=== PATIENT | female | born 2000 | race African-American/Black ===

== ENCOUNTER 2018-04-15 20:54 | Emergency (ER) | payer OTHER ==
[2018-04-15] MEDS: KETOROLAC 60 MG/2 ML VIAL (J1885) IM (22:30)
[2018-04-15] MEDS: ACETAMINOPHEN 325 MG TAB PO (22:30)
[2018-04-15] MEDS: traMADol 50 MG TAB PO (23:32)
== END 2018-04-15 23:38 | disposition home or self-care (01) ==
LOC: M ED 20:54
DX: N94.6 Dysmenorrhea, unspecified (principal); R51 Headache
CPT/HCPCS: J1885

== ENCOUNTER 2018-05-21 16:26 | Emergency (ER) | payer OTHER ==
[2018-05-21] MEDS: ONDANSETRON 4 MG ORAL DISINTEGRATING TAB (Q0162 PER 1MG) PO (18:38)
== END 2018-05-21 19:50 | disposition home or self-care (01) ==
LOC: M ED 16:26
DX: A08.4 Viral intestinal infection, unspecified (principal); Z79.3 Long term (current) use of hormonal contraceptives; Z88.6 Allergy status to analgesic agent; Z88.5 Allergy status to narcotic agent
CPT/HCPCS: Q0162

== ENCOUNTER 2018-07-07 07:36 | Emergency (ER) | payer OTHER | END 2018-07-07 08:25 | disposition home or self-care (01) | LOC: M ED 07:36 | DX: M79.671 Pain in right foot (principal); M79.672 Pain in left foot; M79.674 Pain in right toe(s); M79.675 Pain in left toe(s); X31.XXXA Exposure to excessive natural cold, initial encounter; Y92.89 Other specified places as the place of occurrence of the external cause; Y99.1 Military activity | CPT/HCPCS: 99282 ==

== ENCOUNTER 2019-07-28 12:49 | Emergency (ER) | payer OTHER ==
[~2019-07-28] VITALS: Ht 160 cm; Wt 59.1 kg
[~2019-07-28 12:49] MED LIST: ALEV220C2 PO; IBUP80TA PO; PRED20TA PO; ULTR50TA8 PO; ZOFR4TAB14 PO; [UNRECOGNIZED DRUG - CODE]
[2019-07-28] MEDS ORDERED: predniSONE 20 MG TAB PO ONE (13:45)
[2019-07-28] MEDS ORDERED: IBUPROFEN 600 MG TAB PO ONE (13:45)
[2019-07-28 14:07] LABS: BASO % 0.3 % (0.0-1.0); EOS # 0.2 10^3/uL (0.0-0.5); EOS % 2.5 % (0.0-3.0); HEMATOCRIT 46.9 % (36.0-47.0); HEMOGLOBIN 15.5 g/dl (12.0-15.5); LYMPH # 2.3 10^3/uL (1.5-5.0); LYMPH % 29.3 % (24.0-44.0); MEAN CORPUSCULAR HEMOGLOBIN 29.2 pg (27.0-33.0); MEAN CORPUSCULAR VOLUME 88.3 fl (80.0-96.0); MONO # 0.4 10^3/uL (0.0-0.8); MONO % 5.3 % (0.0-5.0); NEUTROPHILS # 4.9 10^3/uL (1.5-8.5); NEUTROPHILS % 62.3 % (36.0-66.0); PLATELET COUNT, AUTOMATED 269 10^3/uL (150-450); RED BLOOD COUNT 5.31 10^6/uL (4.00-5.40); WHITE BLOOD COUNT 7.9 10^3/uL (4.0-10.0)
[2019-07-28] MEDS ORDERED: CLOB0.0526 TOP (14:45)
[2019-07-28] MEDS ORDERED: PRED20TA PO (14:45)
[2019-07-28 14:56] VITALS: BP 123/68
== END 2019-07-28 14:57 | disposition home or self-care (01) ==
LOC: M ED 12:49
DX: L30.1 Dyshidrosis [pompholyx] (principal); Z79.899 Other long term (current) drug therapy

== ENCOUNTER 2020-08-17 19:08 | Emergency (ER) | payer OTHER ==
[~2020-08-17] VITALS: Ht 167.6 cm; Wt 67.9 kg
[~2020-08-17 19:08] MED LIST changes: +CLOB0.0526 TOP
[2020-08-17] MEDS ORDERED: DIFL150T PO (22:22)
[2020-08-17] MEDS ORDERED: FLUCONAZOLE 50MG TABLET PO ONE (22:30)
[2020-08-17 22:34] VITALS: BP 112/68
[2020-08-17 23:06] LABS: CHLAMYDIA DNA AMPLIFICATION NEGATIVE (NEGATIVE); GC DNA AMPLIFICATION NEGATIVE (NEGATIVE)
== END 2020-08-17 22:35 | disposition home or self-care (01) ==
LOC: M ED 19:08
DX: N89.8 Other specified noninflammatory disorders of vagina (principal)

== ENCOUNTER 2020-12-05 11:22 | Emergency (ER) | payer OTHER ==
[~2020-12-05] VITALS: Ht 162.6 cm; Wt 63.7 kg
[~2020-12-05 11:22] MED LIST changes: +DIFL150T PO
[2020-12-05 11:23] VITALS: BP 118/69
[2020-12-05] MEDS ORDERED: MINO100C4 PO (11:52)
[2020-12-05] MEDS ORDERED: DIFL200T PO ×2 (12:26→12:29)
== END 2020-12-05 12:41 | disposition home or self-care (01) ==
LOC: M ED 11:22
DX: B37.3 Candidiasis of vulva and vagina (principal); R10.2 Pelvic and perineal pain

== ENCOUNTER 2021-02-03 20:09 | Emergency (ER) | payer OTHER ==
[~2021-02-03] VITALS: Ht 160 cm; Wt 65.7 kg
[~2021-02-03 20:09] MED LIST changes: +DIFL200T PO; +MINO100C4 PO
[2021-02-04] MEDS ORDERED: FLUC150T PO (01:22)
[2021-02-04 01:54] VITALS: BP 118/70
[2021-02-04 02:08] LABS: GC DNA AMPLIFICATION NEGATIVE (NEGATIVE)
[2021-02-04 15:02] LABS: HEPATITIS B SURFACE ANTIBODY POSITIVE (POSITIVE); HEPATITIS B SURFACE ANTIGEN NEGATIVE (NEGATIVE); HIV 1&2 SCREEN CENTAUR NEGATIVE (NEGATIVE)
== END 2021-02-04 01:56 | disposition home or self-care (01) ==
LOC: M ED 20:09
DX: B37.3 Candidiasis of vulva and vagina (principal); N76.0 Acute vaginitis